=== PATIENT | male | born 1985 | race Caucasian/White ===

== ENCOUNTER 2021-01-26 15:39 | Emergency (ER) | payer MEDICAID, SELFPAY ==
[2021-01-26 15:41] VITALS: BP 113/74; PULSE 67; RESP 18; TEMP 36.1; O2SAT 98; BMI 24.3
--- NOTE | 2021-01-26 15:54 | RAD_ITS ---
STUDY: X-RAY - LEFT WRIST REASON FOR EXAM: Male, 35 years old. Pain of left wrist after falling TECHNIQUE: 3 view(s) of the wrist were obtained. COMPARISON: None. FINDINGS: Transverse fracture of the distal radius, nondisplaced, with longitudinal component extending to the articular surface. Normal radiocarpal articulation. Normal distal radioulnar articulation. Normal carpal bones. Normal carpal articulations. Normal carpometacarpal articulation of the thumb. Normal second through fifth carpometacarpal articulations. Normal visualized metacarpal bones. There is soft tissue swelling. RAD/Wrist min 3 Views IMPRESSION: Nondisplaced distal radial fracture. Electronically Signed: Tristan Barba MD ([place]) at 16:12 EDT , Service support ,
--- NOTE | 2021-01-26 16:38 | EDS_ITS ---
HPI History of Present Illness Chief Complaint: Upper Extremity Injury Informant: patient Occured/Mechanism Mechanism/Context: Yes injury Onset/Context/Timing Onset: Yesterday Context: Sudden Onset Timing: Continuous Quality of Pain: Sharp Current Severity: Mild Maximum Severity: Moderate Narrative Narrative: 35-year-old male [id number]. Was playing volleyball last night when he landed awkwardly on his left wrist complaining of pain and swelling today. No prior surgery to the left wrist or forearm but he did have a prior fracture at a much younger age. He denies any other injuries. He has no significant past medical history is on no medications. Prior similar symptoms: Yes Recent Illness/Hospitalization: No PFSH PFSH no medical history Home Medications NK 01/26/21 [History Last Taken Unknown] Allergy/AdvReac Type Severity Reaction Status Date / Time No Known Allergies Allergy Verified 01/26/21 15:40 ROS ROS ED ROS Narrative Denies any recent illness. Review of Systems ROS Unobtainable: Denies due to encephalopathy Constitutional Constitutional ED: Denies frequent falls Eyes Eyes: Denies change in vision ENT ENT ED: Denies ear pain or sore throat Cardiovascular Cardiovascular: Denies chest pain Respiratory/Chest Respiratory/Chest: Denies cough or dyspnea Gastrointestinal Gastrointestinal: Denies abdominal pain, diarrhea, nausea or vomiting Genitourinary Genitourinary ED: Denies dysuria Musculoskeletal Musculoskeletal: Denies back pain, myalgias or neck pain Integumentary Denies rash Neurologic Neurologic: Denies headache(s) Psychiatric Psychiatric: Denies depression Endocrine Endocrinology: Denies polyuria Hematologic/Lymphatic Hematologic/Lymphatic: Denies easy bruising Allergic/Immunologic Allergic/Immunologic ED: Denies urticaria EXAM Physical Exam Narrative Exam Narrative: Young male no acute distress. Tender swollen left wrist with decreased range of motion. Skin intact. Const Vital Signs: 01/26/21 15:41 Temperature 97 F L Temperature Source Temporal Pulse Rate 67 Respiratory Rate 18 Blood Pressure 113/74 Blood Pressure Mean 87 Pulse Ox 98 Oxygen Delivery Method Room Air Positive well nourished and well developed; Negative for obese, cachectic, contractures or unkempt General Appearance ED: well developed and NAD; Negative for unkempt, cachectic or contractures Nutritional Appearance: Negative for cachectic or obese HEENT Reports moist mucous membranes normocephalic and atraumatic; Negative for trauma or tenderness Eyes PERRL and EOMs intact bilaterally Neck full ROM and supple General: Negative for tenderness Chest Wall inspection of chest normal and palpation of chest normal Resp normal respiratory effort and clear to auscultation bilaterally Cardio regular rate, regular rhythm, S1 normal heart sound, S2 normal heart sound and no murmurs GI non-tender, non-distended and no masses Auscultation: normoactive bowel sounds Palpation: soft; Negative for tender, guarding or rebound tenderness present Back/Spine no CVA tenderness Cervical Spine: Negative for cervical spine tenderness Extremity Extremity Narrative: Tenderness mild swelling left wrist. Decreased range of motion. Left shoulder elbow and hand are otherwise unremarkable. Hands none t yennifer. Neurovascularly intact. Skin intact. Palpable radial pulse. Exam is consistent with a possible left wrist fracture. Other extremities or unremarkable. Neuro oriented x3 Sensorium / Orientation: alert, oriented to person, oriented to place and oriented to time; Negative for orientation impaired, lethargic or stuporous Motor Exam: strength 5/5 throughout Psych mental status grossly normal Appearance: Negative for unkempt Skin Lesions: no lesions Rashes: no rashes MDM MDM MDM Narrative Medical decision making narrative: Patient has a nondisplaced left wrist fracture. It was placed in a short arm AP Ortho-Glass splint that I fabricated. He tolerated it well. It was well-padded. He was instructed on splint care. And follow-up with orthopedics. Lab Data Labs: Left wrist x-ray 3 views interpreted by myself the radiologist shows nondisplaced distal radius fracture. I went over the films with the patient. Radiography Diagnostic Testing: Radiology Impression Wrist X-Ray 01/26/21 15:54 IMPRESSION: Nondisplaced distal radial fracture. Electronically Signed: Tristan Barba MD ([place]) at 16:12 EDT , Service support , Procedures Upper Extremity Splints Upper Extremity Splint: Orthoglass Splint Fabrication: Fabricated Location: Left Discharge Plan Triage Chief Complaint: Upper Extremity Injury ED Provider: Adan Moody Dx/Rx/DC Orders Clinical Impression: Left wrist fracture Instructions: ED Fracture, Wrist, General Prescriptions: No Action NK RF: 0 Primary Care Provider: Care Physician,No Primary Referrals: John Adams MD [STAFF PHYSICIAN] - As soon as possible Care Physician,No Primary [Primary Care Provider] - Activity Restrictions/Additional Instructions: Left wrist next 2 days to decrease pain and swelling. Tylenol and Motrin for pain and swelling. Keep splint dry and clean. Call and follow-up with Dr. Manohar Adams of [facility] for further evaluation and casting of your left wrist. Disposition Disposition: Home, Self Care
== END 2021-01-26 16:53 | disposition home or self-care (01) ==
PROVIDERS: Emergency Provider Emergency Medicine
DX: S62.102A Fracture of unspecified carpal bone, left wrist, initial encounter for closed fracture (principal); Y93.68 Activity, volleyball (beach) (court)
CPT/HCPCS: 29125; 73110; 99282

== ENCOUNTER 2021-02-24 18:54 | Emergency (ER) | payer MEDICAID, SELFPAY ==
[2021-02-24 18:56] VITALS: BP 117/74; PULSE 58; RESP 16; TEMP 36.7; O2SAT 98; BMI 27.5
--- NOTE | 2021-02-24 20:09 | EX.ED.DYSGE1 ---
HPI History of Present Illness Chief Complaint: Abscess Informant: patient Narrative Narrative: Patient is a 35-year-old male presenting with pain, redness and swelling to his neck. He states it started about 2 weeks ago but is significantly worsened over the past few days. He was placed on Bactrim but does not like it is getting better. He feels that he needs it to be lanced and he did try to open it up with a pocket knife and states it bled a little bit but he could not get anything out. Denies any fever, chills or any other symptoms. No other complaints at this time. [facility] Medical History History of wrist fracture Home Medications cephalexin 500 mg PO Q6 7 Days #28 cap 02/24/21 [Rx Last Taken Unknown] sulfamethoxazole-trimethoprim 1 tab PO BID 02/24/21 [History Last Taken Unknown] Allergy/AdvReac Type Severity Reaction Status Date / Time No Known Allergies Allergy Verified 02/24/21 18:54 Family History Mother Hypertension Surgical History No pertinent past surgical history Social History household members: spouse and children housing: house number of children: 7 current occupational status: employed current occupation: self employed pets and animals: Yes pets and animals: dog(s) Smoking Status: Never smoker alcohol intake: never what type of physical activity do you participate in: none seatbelt use: always do you feel safe at home: Yes ROS ROS ED Constitutional Constitutional ED: Denies chills or fever(s) Eyes Eyes: Denies change in vision ENT ENT ED: Denies ear pain, rhinorrhea or sore throat Cardiovascular Cardiovascular: Denies chest pain or palpitations Respiratory/Chest Respiratory/Chest: Denies dyspnea Gastrointestinal Gastrointestinal: Denies abdominal pain or vomiting Musculoskeletal Musculoskeletal: Denies arthralgias or myalgias Integumentary Reports abscess Neurologic Neurologic: Denies headache(s) or weakness EXAM Physical Exam Const Vital Signs: 02/24/21 18:56 Temperature 98.0 F Temperature Source Temporal Pulse Rate 58 L Respiratory Rate 16 Blood Pressure 117/74 Blood Pressure Mean 88 Pulse Ox 98 Oxygen Delivery Method Room Air Positive well nourished and well developed General Appearance ED: well developed HEENT Reports moist mucous membranes Negative for trauma Eyes PERRL and EOMs intact bilaterally Neck no lymphadenopathy and supple Neck Narrative: Normal range of motion. General: Negative for tenderness Chest Wall inspection of chest normal Resp normal respiratory effort and clear to auscultation bilaterally Cardio regular rate and regular rhythm Neuro oriented x3 Sensorium / Orientation: alert Motor Exam: Negative for general weakness Psych mental status grossly normal Skin Skin Narrative: Irregular 5 cm x 3 cm area of induration and erythema of the neck just above the sternal notch with a central 2 cm raised area of fluctuance. No active drainage at this time. Mildly tenderness to palpation. MDM MDM MDM Narrative Medical decision making narrative: Patient evaluated with increased redness, swelling and pain of his anterior neck. Clinically patient has an abscess with some surrounding cellulitic changes. He appears nontoxic in no acute distress. Normal phonation and normal range of motion of his neck. I discussed the abscess with Dr. Rodríguez, ENT, who states with how low it is he is not concerned for thyroglossal duct cyst. Incision and drainage performed, see procedure note. Patient tolerated procedure well. Discharged home with Keflex in addition to the Bactrim. Wound culture sent. Counseled on return precautions. Procedures Other Procedures Procedure(s): Incision and drainage Area anesthetized with 1 cc of lidocaine with epinephrine. A 22-gauge needle used to aspirate from the abscess. Juan C purulence expressed. Of a 10 blade used to make a 1 cm linear incision superficially. Significant purulence was expressed. Loculations were opened up and abscess irrigated with saline. Patient tolerated procedure well. No immediate complications. No bubbling from the wound appreciated. Discharge Plan Triage Chief Complaint: Abscess ED Provider: Daja Rodriguez Dx/Rx/DC Orders Clinical Impression: Abscess, neck Instructions: ED Abscess Incision And Drainage Prescriptions: New cephalexin 500 mg capsule 500 mg PO Q6 7 Days Qty: 28 RF: 0 No Action sulfamethoxazole-trimethoprim 800-160 mg tablet 1 tab PO BID RF: 0 Primary Care Provider: Care Physician,No Primary Referrals: Carlos Aparicio, [NON-STAFF] - Care Physician,No Primary [Primary Care Provider] - Disposition Disposition: Home, Self Care
[2021-02-24] MEDS: Lidocaine 1% (20 ml mdv) 20 ML Vial INFILT (22:15)
== END 2021-02-24 22:16 | disposition home or self-care (01) ==
PROVIDERS: Emergency Provider Emergency Medicine
DX: L02.11 Cutaneous abscess of neck (principal); Z79.899 Other long term (current) drug therapy
CPT/HCPCS: 10060; 87070; 87077; 87186; 87205; 99282

== ENCOUNTER 2021-07-02 18:03 | Emergency (ER) | payer MEDICAID, SELFPAY ==
[2021-07-02 18:04] VITALS: BP 123/76; PULSE 67; RESP 16; TEMP 36; O2SAT 98; BMI 25.8
--- NOTE | 2021-07-02 18:36 | RAD_ITS ---
STUDY: X-RAY - RIGHT KNEE REASON FOR EXAM: Male, 35 years old. injury -- swelling, clinical quads rupture TECHNIQUE: 4 view(s) of the knee. COMPARISON: None. FINDINGS: An acute horizontal nondisplaced fracture is present through the lower pole of the patella with associated moderate prepatellar soft tissue swelling and a small joint effusion. The quadriceps tendon shadow appears grossly normal/intact and there is no demonstrated retraction of the patella from its normal position. Normal visualized distal femur. Normal visualized proximal tibia and fibula. Normal proximal tibiofibular articulation. There is no demonstrated fracture. Normal medial femorotibial compartment. Normal lateral femorotibial compartment. Normal patellofemoral articulation. RAD/Knee 4 or More Views IMPRESSION: 1. An acute horizontal nondisplaced fracture is present through the lower pole of the patella with associated moderate prepatellar soft tissue swelling and a small joint effusion. MRI of the knee can be acquired to evaluate the patellar and quadriceps tendon and greater detail if clinically indicated. Electronically Signed: Arnoldo Kolb MD at 19:39 EST , Service support ,
--- NOTE | 2021-07-02 18:50 | EDS_ITS ---
HPI History of Present Illness HPI Narrative: Right knee injury at noon today. Pain with movement. States on the roof about 8 feet at noon, fell off landing on his feet and falling forward. Swelling to the knee. History of wrist fracture a year ago no surgical intervention. Took Motrin prior to arrival. Denies past medical history. Denies neck or back pain. No head injuries. Came in with crutches. Chief Complaint: Lower Extremity Injury Informant: patient [facility] Medical History History of wrist fracture Home Medications NK 07/02/21 [History Last Taken Unknown] Allergy/AdvReac Type Severity Reaction Status Date / Time No Known Allergies Allergy Verified 07/02/21 18:05 Family History Mother Hypertension Surgical History No pertinent past surgical history Social History household members: spouse and children housing: house number of children: 7 current occupational status: employed current occupation: self employed pets and animals: Yes pets and animals: dog(s) Smoking Status: Former smoker alcohol intake: never what type of physical activity do you participate in: none seatbelt use: always do you feel safe at home: Yes ROS ROS ED Constitutional Constitutional ED: Denies chills, fever(s) or sweats Eyes Eyes: Denies change in vision ENT ENT ED: Denies dysphagia or sore throat Cardiovascular Cardiovascular: Denies chest pain, leg edema, palpitations or racing heartbeat Respiratory/Chest Respiratory/Chest: Denies cough, dyspnea or dyspnea on exertion Gastrointestinal Gastrointestinal: Denies abdominal pain, diarrhea, nausea or vomiting Genitourinary Genitourinary ED: Denies dysuria, hematuria or urinary frequency Musculoskeletal Musculoskeletal: Reports other Details: Right knee injury ; Denies back pain, extremity pain or neck pain Integumentary Denies rash or wounds Neurologic Neurologic: Denies headache(s), paresthesias or weakness EXAM Physical Exam Const Vital Signs: 07/02/21 18:04 07/02/21 19:43 Temperature 96.8 F L Temperature Source Temporal Pulse Rate 67 72 Respiratory Rate 16 17 Blood Pressure 123/76 H Blood Pressure Mean 91 Pulse Ox 98 97 Oxygen Delivery Method Room Air Room Air Positive well nourished and well developed General Appearance ED: well developed and NAD HEENT Reports moist mucous membranes normocephalic and atraumatic Eyes PERRL, EOMs intact bilaterally and conjunctivae normal General Eye ED: Yes normal appearance of both eyes Neck no lymphadenopathy and supple General: Negative for tenderness Chest Wall Chest: Negative for tenderness Resp normal respiratory effort and normal air movement Effort and Inspection: symmetric chest movement; Negative for respiratory distress Cardio regular rate, regular rhythm and no murmurs Peripheral Pulses: pulses 2+ throughout GI normal to inspection, nondistended, normoactive bowel sounds and non-tender Palpation: Negative for guarding or rebound tenderness present Back/Spine no CVA tenderness and no thoracic nor lumbar tenderness Back/Spine Narrative: No midline neck back tenderness. No step-offs. Extremity Extremity Narrative: Right lower extremity: Negative logroll. Patient with very minimal knee extension defect noted at the quadriceps tendon with mild contraction. Also swelling of the patella with tenderness. No deformities of the knee. Skin is intact. Neurovascular intact distally. General Extremety ED: Negative for edema or tenderness General Extremity: Negative for edema Neuro oriented x3 and no sensory deficits noted Sensorium / Orientation: awake and alert Skin no rashes or lesions noted and no wounds MDM MDM MDM Narrative Medical decision making narrative: Patient with clinical quadriceps rupture. Declines any additional pain medications. Pain at the patellar. X-ray 4 views right knee reviewed by myself concerns for horizontal fracture mid patellar. He is placed in a knee immobilizer. He states he will continue Motrin discussed 600 mg every 6 hours. Crutches provided. I did cortext pictures to his orthopedist discussed the concerns for close follow-up as an outpatient. Patient is being discharged under pandemic conditions under declared global, national and state disaster activation, with limited medical resources. Patient and community understands this. Results discussed in layman's terms to the patient satisfaction. All questions answered in layman's terms. Patient understands importance of follow-up care as directed. Patient has been instructed to return to the ED immediately if new symptoms, problems, or questions occur. We mutually agree with the plan of disposition. The patient understand that they may call or return with any questions or concerns at any time. Radiography Diagnostic Testing: Clinical Impression(s) from Imaging Studies Knee X-Ray 07/02/21 18:36 IMPRESSION: 1. An acute horizontal nondisplaced fracture is present through the lower pole of the patella with associated moderate prepatellar soft tissue swelling and a small joint effusion. MRI of the knee can be acquired to evaluate the patellar and quadriceps tendon and greater detail if clinically indicated. Electronically Signed: Arnoldo Kobl MD at 19:39 EST , Service support , Discharge Plan Triage Chief Complaint: Lower Extremity Injury ED Provider: Nilson Luke Dx/Rx/DC Orders Clinical Impression: Closed fracture of right patella, Rupture of right quadriceps muscle Instructions: ED Patella Fracture Prescriptions: No Action NK RF: 0 Primary Care Provider: Care Physician,No Primary Referrals: John Adams MD [STAFF PHYSICIAN] - 3-5 Days Care Physician,No Primary [Primary Care Provider] - Activity Restrictions/Additional Instructions: Maintain knee immobilizer and crutches. Patellar fracture on x-ray. Clinical concerns for quadriceps rupture. Continue your Motrin 600 mg every 6 hours. Follow-up with Dr. Adams. Disposition Disposition: Home, Self Care Discharge Date/Time: 07/02/21 19:47
[2021-07-02 19:43] VITALS: PULSE 72; RESP 17; O2SAT 97
== END 2021-07-02 19:47 | disposition home or self-care (01) ==
PROVIDERS: Emergency Provider Emergency Medicine; Visit Provider Emergency Medicine
DX: S82.091A Other fracture of right patella, initial encounter for closed fracture (principal); S76.111A Strain of right quadriceps muscle, fascia and tendon, initial encounter; W13.2XXA Fall from, out of or through roof, initial encounter; Z87.891 Personal history of nicotine dependence
CPT/HCPCS: 73564; 99283

== ENCOUNTER 2021-09-03 15:03 | Outpatient (CLI) | payer MEDICAID, SELFPAY ==
--- NOTE | 2021-09-03 15:17 | CT_ITS ---
EXAM: CT NECK WITH INTRAVENOUS CONTRAST CLINICAL INDICATION: NECK MASS TECHNIQUE: Helically acquired images were obtained of the neck with intravenous contrast. This CT exam was performed using one or more of the following dose reduction techniques: automated exposure control, adjustment of the mA and/or kV according to patient size, and/or use of iterative reconstruction technique. This report was created using [employer] report generation technology. CONTRAST: IV 100mL Isovue-300 COMPARISON: None. FINDINGS: NASOPHARYNX: Unremarkable. SUPRAHYOID NECK: Unremarkable. Oropharynx, oral cavity, parapharyngeal space and retropharyngeal space are unremarkable. INFRAHYOID NECK: Unremarkable. The larynx, hypopharynx and supraglottis are unremarkable. SUBMANDIBULAR/PAROTID GLANDS: Unremarkable. Glands are normal in size. THYROID: Unremarkable. No enlarged or calcified nodules. BONES/JOINTS: No acute fracture. SOFT TISSUES: Unremarkable. VASCULATURE: The marker is directly over a small artery in the neck. LYMPH NODES: Unremarkable. No lymphadenopathy. LUNG APICES: Unremarkable as visualized. CT/Soft Tissue Neck WITH Contrast IMPRESSION: The marker is directly over a small artery in the neck. Electronically Signed: Rhett Kim MD at 19:36 EDT ,
--- OUTSIDE RECORDS SUMMARY | 2022-02-28 10:06 | XMS RPT_ITS | Continuity of Care Document ---
:1985 External Reference #:[id number] Author Name JOHN ADAMS MD Address [address] [place] [address] [address] [place] [address] Care Team Providers Name Role Phone None Care Team Information Inspector [employer] Unavailab Nilson Freed DO Care Team Information Inspector [employer] [phone] Canelo Escamilla DO Care Team Information Inspector [employer] [phone] Problems Active Problems Provider Date History finding Onset: 01/29/2021 H/O: fracture Onset: 01/29/2021 Injury of wrist Onset: 01/26/2021 Rupture of skeletal muscle Onset: 06/22 Closed fracture of patella Onset: 07/02 Abscess of neck Onset: 02/24/2021 Fracture of distal end of radius Onset: 01/29/2021 Social History Type Date Description Comments Tobacco Use Start: Unknown End: Former Cigarette Smoker Unknown Smokeless Tobacco Former user ETOH Use Denies use Recreational Drug Use Denies Use Tobacco Use Start: Unknown End: Patient is a former smoker Unknown Allergies and adverse reactions Active Allergies Criticality Reaction Severity Comments Date NKDA Unable to assess 07/08/2021 criticality Inactive Allergies No Known Substance Allergies Unable to assess criticality 02/07/2021 Medications Description No Active Medications Vital Signs Date Vital Result Comment 07/08/2021 2:30pm Height 68.8 inches 5'8.80 Weight 167.00 lb Weight 75.751 kg BMI (Body Mass Index) 24.8 kg/m2 BP Systolic 110 mmHg BP Diastolic 70 mmHg Heart Rate 58 /min Body Temperature 97.3 ?F Body Temperature 36.3 ?C Pain Level 2 07/02/2021 12:00am Height 67 inches Weight 164.94 lb Weight 74.840 kg BMI (Body Mass Index) 25.8 kg/m2 BP Systolic 123 mmHg BP Diastolic 76 mmHg Heart Rate 72 /min Respiratory Rate 17 /min Body Temperature 96.8 ?F Body Temperature 36.0 ?C Assessments Date Code Description Provider 07/08/2021 S82.091A Other fracture of right patella, initial John Adams MD encounter for closed fracture Plan of Treatment 07/08/2021 - John Adams, [id number] Other fracture of right patella, initial encounter for closed fractureNew Orders:Specialist, Scheduled: 07/12/21 Functional Status Functional Condition Comment Date Status Dentures Active Mental Status Description No Information Available
== END 2021-09-03 23:59 | disposition home or self-care (01) ==
PROVIDERS: Visit Provider Otolaryngology
DX: Q18.0 Sinus, fistula and cyst of branchial cleft (principal)
CPT/HCPCS: 70491; Q9967